=== PATIENT | female | born 1995 | race Caucasian/White ===

== ENCOUNTER 2021-10-01 13:56 | Emergency (ER) | payer BC, SELFPAY ==
[2021-10-01 13:57] VITALS: BP 112/87; PULSE 120; RESP 17; TEMP 36.1; O2SAT 96; BMI 32.1
[2021-10-01 14:08] VITALS: BP 127/81; PULSE 105; RESP 15; O2SAT 98; O2SAT 99
--- NOTE | 2021-10-01 14:20 | RAD_ITS ---
STUDY: X-RAY CHEST REASON FOR EXAM: Female, 26 years old. Cough, fatigue and headaches. TECHNIQUE: Single AP portable view of the chest. COMPARISON: None. FINDINGS: The lungs are clear and expanded. There is no demonstrated pleural abnormality. Normal size heart. Normal mediastinum and debby. Normal visualized pulmonary arteries. Normal visualized aortic arch and descending thoracic aorta. Normal visualized thoracic spine. Normal visualized ribs, clavicles, and shoulders. There is no demonstrated abnormality of the visualized soft tissue structures of the upper abdomen. RAD/Chest 1 View (Portable) IMPRESSION: Normal x-ray examination of the chest. Electronically Signed: Eduar Ojeda MD at 14:40 EST , Service support ,
--- NOTE | 2021-10-01 14:21 | EX.ED.VIS.UR ---
HPI HPI - URI History of Present Illness Chief Complaint: Cough Informant: patient and parent Onset/Context/Timing Onset: Days Context: Gradual Onset Timing: Continuous Current Severity: Mild Maximum Severity: Mild Associated Symptoms Associated Symptoms: Positive for Nasal Congestion, Myalgias, Diarrhea and Nonproductive cough Narrative Narrative: 6-year-old female no seen past management with medical history. He has had a cough for last 3 days diarrhea last 5 days. Cough is nonproductive. She has had a fever between 101 - 101.7. No vomiting. No dysuria. She has had no history of being Covid positive and she is unvaccinated. Prior similar symptoms: Yes Recent Illness/Hospitalization: No ROS ROS ED ROS Narrative Metastatic cough lung cancer, diarrhea, fever. Body aches. Review of Systems ROS Unobtainable: Denies due to encephalopathy Constitutional Constitutional ED: Reports chills, fever(s) and subjective Eyes Eyes: Denies change in vision ENT ENT ED: Reports rhinorrhea; Denies ear pain or sore throat Cardiovascular Cardiovascular: Denies chest pain Respiratory/Chest Respiratory/Chest: Reports cough; Denies dyspnea Gastrointestinal Gastrointestinal: Reports diarrhea; Denies abdominal pain, nausea or vomiting Genitourinary Genitourinary ED: Denies dysuria Musculoskeletal Musculoskeletal: Reports myalgias Integumentary Denies rash Neurologic Neurologic: Denies headache(s) Psychiatric Psychiatric: Denies depression Endocrine Endocrinology: Denies polyuria Hematologic/Lymphatic Hematologic/Lymphatic: Denies easy bruising Allergic/Immunologic Allergic/Immunologic ED: Denies urticaria PFSH PFSH Medical History Non-smoker no medical history Home Medications dexamethasone [Decadron] 6 mg PO DAILY 10 Days #10 tab 10/01/21 [Rx Last Taken Unknown] Allergy/AdvReac Type Severity Reaction Status Date / Time No Known Allergies Allergy Verified 02/22/16 21:36 Social History Smoking Status: Never smoker EXAM Physical Exam Narrative Exam Narrative: 26-year-old female no acute distress vital signs stable afebrile does not look septic or toxic. HEENT exam unremarkable. Moist weeks membranes. Neck nontender no lymphadenopathy. Lungs clear to auscultation bilaterally. Dry cough. No rales, rhonchi nor wheezing. Heart regular rhythm no murmur abdomen soft nontender moving all 4 extremities. Calves are nontender no edema. Neurologically awake and alert with no focal motor deficits. Const Vital Signs: 10/01/21 13:57 10/01/21 14:08 10/01/21 15:00 Temperature 96.9 F L 98.3 F Temperature Source Temporal Temporal Pulse Rate 120 H 105 H 90 Respiratory Rate 17 15 16 Respiratory Effort Normal Respiratory Depth Normal Respiratory Pattern Normal Blood Pressure 112/87 H 127/81 H 109/83 H Blood Pressure Mean 95 96 91 Pulse Ox 96 98 98 Oxygen Delivery Method Room Air Room Air Room Air Positive well nourished and well developed; Negative for obese, cachectic or contractures General Appearance ED: well developed and NAD; Negative for cachectic, contractures, cyanotic, diaphoretic or pallor Nutritional Appearance: Negative for cachectic or obese HEENT Reports moist mucous membranes normocephalic and atraumatic External Ear: external ears normal Eyes PERRL and EOMs intact bilaterally General Eye ED: Negative for pale conjunctiva or scleral icterus Neck no lymphadenopathy, supple, no meningeal signs and no JVD General: Negative for anterior neck swelling or lymphadenopathy Resp normal respiratory effort and clear to auscultation bilaterally Auscultation: Negative for rales, rhonchi or wheezes Cardio no murmurs; Negative for S1 normal heart sound or S2 normal heart sound Rate: regular rate Rhythm: regular rhythm GI non-tender, non-distended and no masses Inspection: Negative for abdominal distention Auscultation: normoactive bowel sounds; Negative for hyperactive bowel sounds or hypoactive bowel sounds Palpation: soft; Negative for tender, guarding, hepatomegaly, splenomegaly or mass Back/Spine no CVA tenderness; Negative for normal ROM General Back: Negative for CVA tenderness Cervical Spine: Negative for cervical spine tenderness Thoracic Spine / Upper Back: Negative for thoracic spinal tenderness Extremity normal to inspection and full ROM General Extremety ED: Negative for cyanosis or tenderness General Extremity: Negative for cyanosis Neuro oriented x3 Sensorium / Orientation: alert, oriented to person, oriented to place and oriented to time; Negative for orientation impaired, lethargic or stuporous Motor Exam: strength 5/5 throughout Psych mental status grossly normal Attitude: No agitated Mood & Affect: Negative for depressed, anxious or tearful Skin General Skin Exam: Negative for jaundice or pallor Lesions: no lesions Rashes: no rashes MDM MDM MDM Narrative Medical decision making narrative: 26-year-old female with a cough chest x-ray and Covid test will be obtained. Clinical exam is unremarkable. Repeat exam patient is doing well at 430. She and I and her father went over her test results including her chest x-ray and Covid test. She will quarantine the next 10 days. I will write her for Decadron my told her I would need to start taking it unless she is feeling worse. She is really not a candidate at this time being 26 and healthy for monoclonal antibody therapy. She knows return if worse. Lab Data Attestation: I reviewed the patient's lab results. Lab results narrative: Rapid Covid antigen positive. Radiography Diagnostic Testing: Clinical Impression(s) from Imaging Studies Chest X-Ray 10/01/21 14:20 IMPRESSION: Normal x-ray examination of the chest. Electronically Signed: Eduar Ojeda MD at 14:40 EST , Service support , Chest x-ray, portable, single view interpreted by myself the radiologist is normal. No acute abnormality. Normal cardiac silhouette. No infiltrates. Discharge Plan Triage Chief Complaint: Cough ED Provider: David Gallo Dx/Rx/DC Orders Clinical Impression: COVID-19 Instructions: Human Coronaviruses Prescriptions: New dexamethasone [Decadron] 6 mg tablet 6 mg PO DAILY 10 Days Qty: 10 RF: 0 Primary Care Provider: Lucy Ren Referrals: Lucy Ren MD [Primary Care Provider] - 1 Week if not improving Activity Restrictions/Additional Instructions: You have COVID-19 you need to quarantine from 10 days from the onset of your symptoms. Side be off work all this week and all next week. Plenty of fluids and rest. Alternate Tylenol and Motrin for body aches and fevers. I will write you a prescription for Decadron at this time you do not even need to take it unless you start having worsening symptoms or shortness of breath. If you start feeling a lot worse return to the ER. If you are just not improving follow-up with your doctor. Disposition Disposition: Home, Self Care
[2021-10-01 15:00] VITALS: BP 109/83; PULSE 90; RESP 16; TEMP 36.8; O2SAT 98
[2021-10-01 17:10] VITALS: PULSE 88; RESP 19; O2SAT 97
== END 2021-10-01 16:50 | disposition home or self-care (01) ==
PROVIDERS: Emergency Provider Emergency Medicine; PCP Pediatrics
DX: U07.1 COVID-19 (principal); Z79.52 Long term (current) use of systemic steroids
CPT/HCPCS: 71045; 87426; 99282